=== PATIENT | female | born 1980 | race African-American/Black ===

== ENCOUNTER 2017-11-25 21:04 | Emergency (ER) | payer OTHER ==
[2017-11-25 21:59] LABS: URINE HCG POC HCG NEGATIVE (Negative)
[2017-11-25 22:04] LABS: ADD MAN DIFF? NO
[2017-11-25 22:05] LABS: BASO # 0.1 x10^3/uL (0.0-0.2); BASO % 1 % (0-3); EOS # 0.2 x10^3/uL (0.0-0.7); EOS % 4 % (0-3); HEMATOCRIT 42.9 % (36.0-47.0); HEMOGLOBIN 14.1 g/dL (12.0-15.5); LYMPH % 38 % (24-48); MEAN CORPUSCULAR HEMOGLOBIN 28 pg (25-35); MEAN CORPUSCULAR HGB CONC 33 g/dL (31-37); MEAN CORPUSCULAR VOLUME 86 fL (79-100); MONO # 0.7 x10^3/uL (0.0-1.1); MONO % 14 % (0-9); NEUT # 2.3 x10^3uL (1.8-7.7); NEUT % 44 % (31-73); PLATELET COUNT 360 x10^3/uL (140-400); RED CELL DISTRIBUTION WIDTH 13.7 % (11.5-14.5); WHITE BLOOD COUNT 5.3 x10^3/uL (4.0-11.0)
[2017-11-25 22:06] LABS: BARBITURATES NEG (NEG); BENZODIAZEPINES NEG (NEG); CANNABINOIDS NEG (NEG); COCAINE NEG (NEG); METHADONE NEG (NEG); OPIATES POS (NEG); PHENCYCLIDINE NEG (NEG)
[2017-11-25 22:07] LABS: BILIRUBIN,URINE NEGATIVE (NEG); COLOR,URINE YELLOW; GLUCOSE,URINE NEGATIVE (NEG); NITRITE,URINE NEGATIVE (NEG); PROTEIN,URINE NEGATIVE (NEG-TRACE); UROBILINOGEN,URINE 0.2 mg/dL (0.2 mg/dL)
[2017-11-25 22:09] LABS: AMPHETAMINE/METHAMPHETAMINE POS (NEG); ETHANOL, URINE NEG (NEG)
[2017-11-25 22:11] LABS: CLARITY,URINE HAZY
[2017-11-25] MEDS: diphenhydrAMINE 50 MG/ML VIAL IVP (22:11)
[2017-11-25] MEDS: PROCHLORPERAZINE 10 MG/2 ML VIAL. IV (22:11)
[2017-11-25] MEDS: IV NORMAL SALINE 1000ML BAG 1,000 ML IV (22:11)
[2017-11-25 22:14] LABS: ANION GAP 5 (6-14); BLOOD UREA NITROGEN 5 mg/dL (7-20); BUN/CREATININE RATIO 8 (6-20); CARBON DIOXIDE 28 mmol/L (21-32); CHLORIDE 107 mmol/L (98-107); CREATININE 0.6 mg/dL (0.6-1.0); GFR 137.7; GLUCOSE 88 mg/dL (70-99); POTASSIUM 3.3 mmol/L (3.5-5.1); SODIUM 140 mmol/L (136-145)
[2017-11-25 22:17] LABS: AMORPHOUS SEDIMENT,UR PRESENT /HPF; BACTERIA,URINE 0 /HPF (0-FEW); RBC,URINE 0 /HPF (0-2); SQUAMOUS EPITHELIAL CELL,UR FEW /LPF; WBC,URINE RARE /HPF (0-4)
[2017-11-25 22:20] LABS: ALBUMIN 3.3 g/dL (3.4-5.0); ALBUMIN/GLOBULIN RATIO 0.9 (1.0-1.7); ALK PHOS 61 U/L (46-116); ALT (SGPT) 19 U/L (14-59); AST (SGOT) 17 U/L (15-37); LIPASE 61 U/L (73-393); TOTAL BILIRUBIN 0.5 mg/dL (0.2-1.0)
== END 2017-11-25 23:57 | disposition home or self-care (01) ==
LOC: ER 23:57
DX: G43.909 Migraine, unspecified, not intractable, without status migrainosus (principal); E86.0 Dehydration; E87.6 Hypokalemia; F90.9 Attention-deficit hyperactivity disorder, unspecified type; Z88.6 Allergy status to analgesic agent
CPT/HCPCS: 36415; 80053; 80307; 81001; 81025; 83690; 85025; 96361; 96374; 96375; 99284-25; J0780; J1200; J7030

== ENCOUNTER 2018-01-14 08:54 | Day surgery (SDC) | payer OTHER ==
[~2018-01-14 08:54] MED LIST: BUPIVACAINE-EPI 0.25%-1:200000 50 ML VIAL.; LIDOCAINE 1% PF 2 ML VIAL. ID; MORPHINE SULFATE 4 MG/ML DISP.SYRIN. IV; ONDANSETRON PF 4 MG/2 ML VIAL. IV; fentaNYL PF VIAL 100 MCG/2 ML VIAL IV
[2018-01-14 09:26] LABS: ADD MAN DIFF? NO
[2018-01-14 09:31] LABS: BASO % 1 % (0-3); EOS # 0.2 x10^3/uL (0.0-0.7); EOS % 3 % (0-3); HEMATOCRIT 41.6 % (36.0-47.0); HEMOGLOBIN 14.4 g/dL (12.0-15.5); LYMPH # 1.7 x10^3/uL (1.0-4.8); LYMPH % 29 % (24-48); MEAN CORPUSCULAR HEMOGLOBIN 30 pg (25-35); MEAN CORPUSCULAR HGB CONC 35 g/dL (31-37); MEAN CORPUSCULAR VOLUME 85 fL (79-100); MONO # 0.5 x10^3/uL (0.0-1.1); MONO % 8 % (0-9); NEUT # 3.5 x10^3uL (1.8-7.7); NEUT % 59 % (31-73); PLATELET COUNT 289 x10^3/uL (140-400); RED BLOOD COUNT 4.89 x10^6/uL (3.50-5.40); RED CELL DISTRIBUTION WIDTH 13.3 % (11.5-14.5); WHITE BLOOD COUNT 5.9 x10^3/uL (4.0-11.0)
[2018-01-14] MEDS: IV RINGERS,LACTATED 1000ML 1,000 ML IV ×2 (09:40→12:32)
[2018-01-14 09:41] LABS: PROTHROMBIN TIME PATIENT 12.3 SEC (11.7-14.0)
[2018-01-14 09:50] LABS: ANION GAP 8 (6-14); BLOOD UREA NITROGEN 12 mg/dL (7-20); BUN/CREATININE RATIO 17 (6-20); CALCIUM 9.4 mg/dL (8.5-10.1); CARBON DIOXIDE 28 mmol/L (21-32); CHLORIDE 107 mmol/L (98-107); CREATININE 0.7 mg/dL (0.6-1.0); GFR 115.2; GLUCOSE 112 mg/dL (70-99); POTASSIUM 3.5 mmol/L (3.5-5.1); SODIUM 143 mmol/L (136-145)
[2018-01-14 09:51] LABS: NEG OBC UR NEG; POS OBC UR POS; U PREG PATIENT NEGATIVE (NEG)
[2018-01-14 09:54] LABS: ALBUMIN 3.8 g/dL (3.4-5.0); ALK PHOS 58 U/L (46-116); ALT (SGPT) 21 U/L (14-59); AST (SGOT) 15 U/L (15-37); TOTAL BILIRUBIN 0.9 mg/dL (0.2-1.0); TOTAL PROTEIN 7.5 g/dL (6.4-8.2)
[2018-01-14 09:55] LABS: THYROID STIM HORMONE (TSH) 0.065 uIU/mL (0.358-3.74)
[2018-01-14] MEDS ORDERED: LIDOCAINE 2% PF Vial for OR 5 ML VIAL. (09:58)
[2018-01-14] MEDS ORDERED: FAMOTIDINE 20 MG/2 ML VIAL (09:58)
[2018-01-14] MEDS ORDERED: PROPOFOL 20 ML IV (09:58)
[2018-01-14] MEDS ORDERED: DEXAMETHASONE SOD PHOS 20 MG/5 ML VIAL. (09:58)
[2018-01-14] MEDS ORDERED: fentaNYL PF VIAL 100 MCG/2 ML VIAL ×2 (09:58→11:55)
[2018-01-14] MEDS ORDERED: ONDANSETRON PF 4 MG/2 ML VIAL. (09:58)
[2018-01-14] MEDS ORDERED: ROCURONIUM 50 MG/5 ML VIAL. (09:58)
[2018-01-14] MEDS ORDERED: MIDAZOLAM HCL/PF 2 MG/2 ML VIAL. (09:59)
[2018-01-14] MEDS ORDERED: NEOSTIGMINE METHYLSULFATE 5 MG/5 ML SYRINGE. (11:05)
[2018-01-14] MEDS ORDERED: GLYCOPYRROLATE 1 MG/5 ML VIAL. (11:06)
[2018-01-14] MEDS ORDERED: DESFLURANE 61 TO 120 MINUTES IH (11:27)
[2018-01-14] MEDS ORDERED: PROCHLORPERAZINE 10 MG/2 ML VIAL. (11:41)
[2018-01-14] MEDS: PROCHLORPERAZINE 10 MG/2 ML VIAL. IV (11:45)
[2018-01-14] MEDS: HYDROcodone/APAP 5/325MG 1 TAB TABLET PO (12:57)
[2018-01-14 21:12] LABS: T3 TOTAL 110 ng/dL (71-180)
[2018-01-14 21:12] LABS: THYROXINE 10.9 ug/dL (4.5-12.0)
== END 2018-01-14 13:55 | disposition home or self-care (01) ==
LOC: SURG 08:54
DX: L91.0 Hypertrophic scar (principal); E89.0 Postprocedural hypothyroidism; G40.909 Epilepsy, unspecified, not intractable, without status epilepticus; G62.9 Polyneuropathy, unspecified; J44.9 Chronic obstructive pulmonary disease, unspecified; Z87.440 Personal history of urinary (tract) infections; F90.9 Attention-deficit hyperactivity disorder, unspecified type; F43.10 Post-traumatic stress disorder, unspecified; F41.9 Anxiety disorder, unspecified; F32.9 Major depressive disorder, single episode, unspecified; Z87.891 Personal history of nicotine dependence; F12.90 Cannabis use, unspecified, uncomplicated; Z98.890 Other specified postprocedural states; Z82.49 Family history of ischemic heart disease and other diseases of the circulatory system; Z88.6 Allergy status to analgesic agent; Z72.89 Other problems related to lifestyle
CPT/HCPCS: 11426; 36415; 80053; 81025; 84436; 84443; 84480; 85025; 85610; 88305; A7015; J0690; J0780; J1100; J2250; J2405; J2704; J2710; J3010; J3490; J7120; S0028